=== PATIENT | female | born 1960 | race Caucasian/White ===

== ENCOUNTER 2017-01-30 09:54 | Day surgery (SDC) | payer MEDICAID ==
[2017-01-27 09:02] VITALS: BMI 28.8
--- NOTE | 2017-01-30 12:51 | CP.SDSHP ---
Same Day Surgery H & P - History Proposed Procedure: FNA left thyroid nodule Pre-Op Diagnosis: left thyroid nodule - Allergies Allergies: Allergies No Known Allergies Allergy (Verified 01/27/17 09:02) - Physical Exam Vital Signs: Vital Signs 01/30/17 10:06 Temperature 97.4 F L Pulse Rate 79 Respiratory 20 Rate Blood Pressure 130/83 O2 Sat by Pulse 100 Oximetry Mental Status: Alert & Oriented x3 - Impression Impression: Pt with left thyroid nodule referred for FNA. Short Stay Discharge - Short Stay Discharge Admitting Diagnosis/Reason for Visit: THYROID NODULE Disposition: HOME/ ROUTINE
--- NOTE | 2017-01-30 12:52 | PCM.SURG1 ---
Surgeon's Initial Post Op Note - Surgeon's Notes Surgeon: Augustus Mcgrath MD Plant H[employer] Manager: None Type of Anesthesia: Local Pre-Operative Diagnosis: left thyroid nodule Operative Findings: 1.4 cm. left thyroid nodule Post-Operative Diagnosis: left thyroid nodule Operation Performed: FNA left thyroid nodule Specimen/Specimens Removed: 25 g FNA x 4 Estimated Blood Loss: EBL {In ML}: 1 Blood Products Given: N/A Drains Used: No Drains Post-Op Condition: Good Date of Surgery/Procedure: 01/30/17 Time of Surgery/Procedure: 12:50
[2017-01-30 13:50] VITALS: BP 129/77; PULSE 78; RESP 18; TEMP 97.8; O2SAT 99
--- NOTE | 2017-02-03 13:31 | US ---
PROCEDURE: Date of Procedure: 01/30/2017 PROCEDURE: 1. Ultrasound guided FNA of left thyroid nodule, CPT 70696 2. Ultrasound guidance for FNA, 06431 Medications: 3cc 1% Lidocaine HISTORY: Enlarged left thyroid nodule. TECHNIQUE: Following informed consent and procedure time-out, a limited ultrasound patient's neck confirmed the presence of a 1.1 cm complex left thyroid nodule which is predominantly solid. After the patient's neck was prepped and draped in the usual sterile fashion, the skin was anesthetized with 1% lidocaine. Ultrasound-guided fine needle aspiration was then performed of the dominant left thyroid nodule. A total of 4 passes were made into the nodule with 25 gauge needle under ultrasound guidance. The FNA specimen was sent for routine pathology. Post biopsy ultrasound showed no hematoma. IMPRESSION: Ultrasound-guided FNA of the dominant left thyroid nodule.
== END 2017-01-30 13:15 | disposition home or self-care (01) ==
LOC: C.SPRAD 09:54
PROVIDERS: ATTEND Radiology Vascular & Interventional Radiology
DX: E04.1 Nontoxic single thyroid nodule (principal)